=== PATIENT | male | born 1990 | race Caucasian/White ===

== ENCOUNTER 2018-03-06 18:48 | Emergency (ER) | payer SELFPAY ==
[~2018-03-06] VITALS: Ht 177.8 cm; Wt 70.3 kg
[2018-03-06 18:48] VITALS: BP 135/95
[2018-03-06] MEDS ORDERED: oxyCODONE/APAP (5/325 MG) 1 UDTAB TABLET ONE (19:15)
[2018-03-06] MEDS ORDERED: IBUPROFEN 600 MG TABLET PO ONE ×2 (19:16→19:30)
[2018-03-06] MEDS ORDERED: oxyCODONE/APAP (5/325 MG) 1 UDTAB TABLET PO ONE (19:30)
== END 2018-03-06 19:38 | disposition home or self-care (01) ==
LOC: ER 18:50
DX: K08.89 Other specified disorders of teeth and supporting structures (principal); F12.90 Cannabis use, unspecified, uncomplicated; F17.210 Nicotine dependence, cigarettes, uncomplicated; F10.10 Alcohol abuse, uncomplicated
CPT/HCPCS: 99283; 99406; A4606; Z7610

== ENCOUNTER 2018-03-26 13:15 | Emergency (ER) | payer MEDICAID ==
[~2018-03-26] VITALS: Ht 177.8 cm; Wt 65.8 kg
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
[2018-03-26] MEDS ORDERED: HYDROCODONE/APAP 5/325MG 1 EACH TABLET PO ONE (14:00)
[2018-03-26] MEDS ORDERED: HYDROCODONE/APAP 5/325MG 1 EACH TABLET ONE (14:09)
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
--- NOTE | 2018-03-26 14:43 | NUR ---
Patient discharged to home in stable condition. Written and verbal after care instructions given. Patient verbalizes understanding of instruction.
[2018-03-26 14:44] VITALS: BP 122/61
== END 2018-03-26 14:44 | disposition home or self-care (01) ==
LOC: ER 13:17
DX: S62.102A Fracture of unspecified carpal bone, left wrist, initial encounter for closed fracture (principal); F17.200 Nicotine dependence, unspecified, uncomplicated; W01.0XXA Fall on same level from slipping, tripping and stumbling without subsequent striking against object, initial encounter; Y93.17 Activity, water skiing and wake boarding; Y92.89 Other specified places as the place of occurrence of the external cause; Y99.8 Other external cause status
CPT/HCPCS: 29125; 73110; 73130; 99284; A4606; Z7610

== ENCOUNTER 2020-12-27 01:21 | Emergency (ER) | payer SELFPAY ==
[~2020-12-27] VITALS: Ht 180.3 cm; Wt 74.8 kg
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
--- NOTE | 2020-12-27 01:44 | NUR ---
X RAY IN PROCESS
[2020-12-27] MEDS ORDERED: HYDROCODONE/APAP 5/325MG TABLET ONE (01:57)
[2020-12-27] MEDS: HYDROCODONE/APAP 5/325MG TABLET PO ONE (01:59)
[2020-12-27] MEDS ORDERED: LIDOCAINE HCL/MPF 1% 30 ML VIAL IJ ONE (02:05)
--- NOTE | 2020-12-27 02:08 | NUR ---
AT BED SIDE FOR L THUMB REDUCTION
--- NOTE | 2020-12-27 02:20 | NUR ---
X RAY AT BED SIDE
--- NOTE | 2020-12-27 02:25 | NUR ---
EMT AT BED SIDE TO APPLY APLINT
[2020-12-27] MEDS ORDERED: KETO10TA2 PO (02:27)
[2020-12-27 02:35] VITALS: BP 135/76
--- NOTE | 2020-12-27 02:35 | NUR ---
Patient discharged to home in stable condition. Written and verbal after care instructions given. Patient verbalizes understanding of instruction and RX. Pt ambulated out of E.D. VSS.
== END 2020-12-27 02:30 | disposition home or self-care (01) ==
LOC: ER 01:22
DX: S63.115A Dislocation of metacarpophalangeal joint of left thumb, initial encounter (principal); V49.59XA Passenger injured in collision with other motor vehicles in traffic accident, initial encounter; Y93.89 Activity, other specified; Y92.413 State road as the place of occurrence of the external cause; Y99.8 Other external cause status
CPT/HCPCS: 26700; 73110; 73130 ×2; 99284; J3490